=== PATIENT | female | born 1955 | race Caucasian/White ===

== ENCOUNTER 2023-04-07 13:19 | Outpatient (OUT) | payer MEDICARE, SELFPAY ==
[2023-04-07 14:23] LABS: Basophils Percent Auto 0.3 % (0.2-2.0); Eosinophils Absolute Auto 0.2 10^3/uL (0.0-0.7); Eosinophils Percent Auto 2.2 % (0.9-7.0); Hematocrit 41.1 % (36.0-48.0); Hemoglobin 13.5 g/dL (12.0-16.0); Immature Granulocytes Abs Auto 0.05 10^3/uL (0.00-0.03); Immature Granulocytes Pct Auto 0.6 % (0.0-0.5); Lymphocytes Absolute Auto 2.7 10^3/uL (1.2-3.8); Lymphocytes Percent Auto 29.7 % (20.5-60.0); Mean Corpuscular HGB Conc 32.8 g/dL (29.9-35.2); Mean Corpuscular Hemoglobin 29.2 pg (26.7-34.0); Mean Platelet Volume 10.9 fL (9.5-13.5); Monocytes Absolute Auto 0.8 10^3/uL (0.3-0.8); Monocytes Percent Auto 8.4 % (1.7-12.0); Neutrophils Absolute Auto 5.3 10^3/uL (1.4-6.5); Neutrophils Percent Auto 58.8 % (43.0-75.0); Platelet Count 191 10^3/uL (150-450); Red Blood Count 4.62 10^6/uL (4.20-5.40); Red Cell Distribution Width 14.8 % (11.0-15.0)
[2023-04-07 14:47] LABS: Anion Gap 13.3; BUN Creatinine Ratio 14.4; Carbon Dioxide 26.5 mmol/L (21.0-32.0); Chloride 105 mmol/L (98-107); Estimated GFR (African America >60 (>=60); Estimated GFR (Non-African Ame 57 (>=60); Glucose 98 mg/dL (74-106); Potassium 3.8 mmol/L (3.5-5.1); Sodium 141 mmol/L (136-145)
[2023-04-07 15:04] LABS: INR 1.42; Partial Thromboplastin Time 38.7 sec (22.3-36.2); Prothrombin Time 14.8 sec (9.0-11.6)
== END 2023-04-07 13:20 ==
LOC: PST 13:23
PROVIDERS: Surgery; PCP Family Medicine
DX: Z01.812 Encounter for preprocedural laboratory examination (principal); K82.4 Cholesterolosis of gallbladder; J44.9 Chronic obstructive pulmonary disease, unspecified; Z79.01 Long term (current) use of anticoagulants
CPT/HCPCS: 36415; 80048; 85025; 85610; 85730

== ENCOUNTER 2023-04-22 08:18 | Day surgery (SDC) | payer MEDICARE, SELFPAY ==
[2023-04-07 13:54] VITALS: BP 156/91; PULSE 86; RESP 22; TEMP 36.6; O2SAT 94; BMI 32.0
[2023-04-22] VITALS (20 sets, daily range): BP systolic 118–198; BP diastolic 62–105; PULSE 65–87; RESP 12–21; TEMP 36.2–36.3; O2SAT 95–100; BMI 31.6
[2023-04-22] MEDS: INDOCYANINE GREEN 25 MG VIAL INJ (08:54)
[2023-04-22] MEDS: LACTATED RINGER'S SOLUTION 1,000 ML 50 ML IV (08:54)
[2023-04-22] MEDS: CEFAZOLIN SODIUM/DEXTROSE,ISO 2 GM/50 ML PIGGYBACK IV (09:21)
[2023-04-22] MEDS: BUPIVACAINE HCL 0.5% PF 50 MG/10 ML VIAL 20 ML INJ (10:04)
--- NOTE | 2023-04-22 10:51 | PM.GSPRC ---
Date of procedure: 03/25/23 Indications for Procedure: This patient is a 67-year-old female who was recently seen for episodes of right upper quadrant pain. Gallbladder ultrasound revealed cholelithiasis or possible gallbladder polyp. Robotic cholecystectomy was recommended. The risks benefits options and potential complications of the procedure were discussed in detail with the patient and they agreed to proceed and consent was signed. Pre-op diagnosis: symptomatic cholelithiasis, and possible gallbladder polyp Post-op diagnosis: same Procedure: robotic cholecystectomy with ICG cholangiogram Anesthesia: GETA Surgeon: Ike Belcher Procedure Summary: The patient was brought to the operating room placed in the supine position. Gen. anesthesia was induced and the patient was intubated. The abdomen was prepped and draped in usual sterile fashion. She had been given preoperative IV antibiotics and was also given preoperative ICG. A site in the left upper quadrant was infiltrated with half percent Marcaine with epinephrine. A small incision was made. A 12 mm port was placed through this incision and advanced into the peritoneal cavity under laparoscopic guidance. The abdomen was then insufflated to 15 mmHg of carbon dioxide. The camera was reintroduced and safe port site entry was confirmed. Three 8 mm robotic ports were then placed, one at the umbilicus and two in the right lateral abdomen following local anesthesia under direct visualization. The camera was removed and an additional 8 mm port was placed through the 12 mm port. the patient was then placed in reverse Trendelenburg position and banked to the left. At this time the da Marbin XI was brought to the field and camera was introduced and all ports direct and instruments introduced in standard fashion.at this time I left the operating table and attended the surgeon consult. The fundus of the gallbladder is grasped and retracted cephalad. The region of Zamora's pouch was grasped and retracted laterally. Dissection was not carried out in the region of the triangle of Calot. The cystic duct was readily identified. This was confirmed with a client services director. This was then divided between clips. Posterior to this the cystic artery was identified. This was divided after clip placement. The gallbladder was then taken off the liver using electrocautery. Excellent hemostasis and secured clip placement was noted. The gallbladder was then placed in a retrieval bag. This was brought out through the 12 mm port site intact. Instruments, camera and ports were subsequently removed and the abdomen was desufflated. Skin incisions were closed with subcuticular sutures of 4-0 Vicryl. Sterile dressings were applied. The patient tolerated the procedure well and was transferred to the recovery area in stable condition. Estimated blood loss (mL): 2 Specimens: gallbladder Complications: No
[2023-04-22] MEDS: HYDRALAZINE HCL 20 MG/ML VIAL 10 MG IVP (11:25)
[2023-04-22] MEDS: ONDANSETRON PF 4 MG/2 ML VIAL IV (11:35)
== END 2023-04-22 13:17 | disposition home health service (06) ==
PROVIDERS: PCP Family Medicine; Visit Provider Surgery
PROC: (CPT 47563; principal; 2023-04-22 10:10)
DX: K80.10 Calculus of gallbladder with chronic cholecystitis without obstruction (principal); Z79.01 Long term (current) use of anticoagulants; J43.1 Panlobular emphysema; Z87.891 Personal history of nicotine dependence; Z87.09 Personal history of other diseases of the respiratory system; Z86.711 Personal history of pulmonary embolism; M19.90 Unspecified osteoarthritis, unspecified site
CPT/HCPCS: 47563; 36415; 88304; J2704

== ENCOUNTER 2023-10-18 10:59 | Outpatient (OUT) | payer OTHER, SELFPAY ==
--- NOTE | 2023-10-18 | ECG_ITS ---
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
== END 2023-10-18 11:00 | disposition home or self-care (01) ==
LOC: CARD 11:02
PROVIDERS: PCP Family Medicine; Visit Provider Family Medicine
DX: R10.13 Epigastric pain (principal)
CPT/HCPCS: 93005

== ENCOUNTER 2025-05-01 16:19 | Emergency (ER) | payer OTHER, SELFPAY ==
--- OUTSIDE RECORDS SUMMARY | 2023-11-02 06:00 | XMS_ITS ---
Author Organization The [facility] in [place] Address [address] [place] [address] Care Team Providers Care Clinical Laboratory Scientist Name Role Phone Michelle Mccarthy Primary Care Provider Joshua Adams Unavailable [phone] Allergies No Known Allergies REASON FOR VISIT F/U-1 YR. PE Medications Medication SIG (Take, Route, Frequency, Duration) Notes Start Date End Date Status Xarelto 20 MG 1 tablet with food O rally Once a day for 90 days Active Ipratropium-Albuterol 0.5-2.5 (3) MG/3ML 3 mL as needed Inhalation every 6 hrs Active Baclofen 10 MG 1 tablet as needed O rally Twice a day Active Social History Tobacco Use: Social History Observation Description Date Details (start date - stop date) Former Smoker NA - NA Tobacco Use/Smoking Question Answer Notes Patient is a former smoker Additional Findings: Tobacco Non-User Ex-heavy c igarette smoker (20-30/day) Vital Signs Weight 165.0 lbs 11/02/2023 Height 61 in 11/02/2023 Blood pressure systolic 143 mm Hg 11/02/19 24 Blood pressure diastolic 83 mm Hg 024 Temperature 97.6 degrees Fahrenheit 11/02/19 24 Heart Rate 60 /min 11/02/2023 Respiratory Rate 18 /min 11/02/2023 BMI 31.17 kg/m2 11/02/2023 Oximetry 98 % 11/02/2023 Encounters Encounter Location Date Provider Diagnosis [facility] [address] [place] [address] 11/02/2023 Joshua Salinas Pulmonary embolism I26.99 ; Long-term (current) use of anticoagulants Z79.01 ; Panlobular emphysema J43.1 ; 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 She has been on Xarelto for nearly 2 years now. Concerned about the mendoza. As she is going to remain on anticoagulation lifelong, I suggested looking into decreasing the dose to a prophylactic dose of 10mg/day. She is going to reach out to the pharmacy to see how much cheaper, if any, it is for the 10mg vs. 20mg tabs. She is going to get back with me regarding it, but I expect to start her on 10mg/day at that time. F/U 1 year, or PRN sooner. 11/02/2023 Long-term (current) use of anticoagulants (ICD-10 - Z79.01) Mild bruising at times, but no abnormal bleeding reported. 11/02/2023 Panlobular emphysema (ICD-10 - J43.1) Secondary to tobacco abuse - AAT normal genotype. Asymptomatic at this time, has refused PFT in the past. 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 LDCT were held d/t chest CTA. 11/02/2023 History of pleural effusion (ICD-10 - Z87.09) 11/02/2023 Obesity, unspecified (ICD-10 - E66.9) 11/02/2023 Body mass index [BMI] 31.0-31.9, adult (ICD-10 - Z68.31) Plan Of Treatment Treatment Notes Assessment Notes Pulmonary embolism Pulmonary emboli were diagnosed on 12/15/2021, not present on prior CT 11/11/2021. 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 She has been on Xarelto for nearly 2 years now. Concerned about the mendoza. As she is going to remain on anticoagulation lifelong, I suggested looking into decreasing the dose to a prophylactic dose of 10mg/day. She is going to reach out to the pharmacy to see how much cheaper, if any, it is for the 10mg vs. 20mg tabs. She is going to get back with me regarding it, but I expect to start her on 10mg/day at that time. F/U 1 year, or PRN sooner. Long-term (current) use of anticoagulant s Mild bruising at times, but no abnormal bleeding reported. Panlobular emphysema Secondary to tobacco abuse - AAT normal genotype. Asymptomatic at this time, has refused PFT in the past. History of tobacco abuse 1ppd x 34 years, quit 2010. LDCT were held d/t chest CTA. Next Appt Details Follow Up: 1 Year, Reason: P ulmonary embolism Provider Name:Joshua Salinas, 10/02/2025 10:30:00 AM, [address] [place], [address], Procedure Notes * Category Sub-Category Detail Notes Alpha-1 Antitrypsin Screening Date: 11/18/2021 Genotype: M/M Progress Notes * [place] FDOB: (68 yo F)Acc No.[id number]:11/02/2023 Follow Up Patient: Bernard Damico Provider: Hellen Salinas DO :1955 A ge:68 Y S ex:Female Date:11/02/2023 Address:[address] [place], [place] [id number] Pcp:Michelle Mccarthy Check In:09:52 AM ESTCheck O ut:10:22 AM EST Subjective: * Chief Complaints: * F /U-1 YR. PE * HPI: G eneral: 1 YEAR F/U P kelly is doing well. No issues with bleeding, though she bruises easily. Breathing well, no complaints. Was seen by me 04/07/2023 preop - had no complications postoperatively. H er only concern is the $$$ of Xarelto - it has increased to $84 to $104/month. She wants to remain on it as long as she can out of fear of developing another pulmonary embolism. * * M A Intake Comments:. Patient presents for a 1-year follow up for a PE. Patient denies any complaints or concerns today. Patient denies any abnormal bleeding. Patient is currently taking Xarelto daily without any issues. * ROS: G eneral/Constitutional: Fever or sweats d enies. C hange of appetite d enies. C hills d enies. W eight Change d enies. H EENT: Dry mouth d enies. S ore throat d enies. O ral Ulcers d enies. P ost Nasal Drip D enies. C ongestion D enies. H oarseness?Denies. C ardiovascular: Tachycardia d enies. C hest pain d enies. P alpitations d enies. R espiratory: Chest tightness d enies. P leurisy D enies. D yspnea d enies. C ough d enies. H emoptysis d enies. W heezing d enies.? G astrointestinal: Acid Reflux/GERD/Heartburn d enies. D ysphagia d enies. M usculoskeletal: Arthralgias/joint pain D enies. S kin: Easy bruising d ue to Xarelto. R darrel d enies. N eurologic: Paresthesias d enies. D izziness/Lightheadedness d enies. S eizures d enies. T remor d enies. H ematology: Abnormal Bleeding n one while on Xarelto. P sychiatric: Anxiety d enies. * Active Problem List J43.1 Panlobular emphysema Modified On:11/02/2023 Status:confirmed I26.99 Pulmonary embolism Modified On:11/02/2023 Status:confirmed Z87.891 History of tobacco a buse Modified On:11/02/2023 Status:confirmed Z87.09 History of pleural e ffusion Modified On:11/02/2023 Status:confirmed Z79.01 Long-term (current) use of anticoagulants Modified On:11/02/2023 Status:confirmed R79.1 Elevated factor VIII level Modified On:11/02/2023 Status:confirmed K80.20 Cholelithiasis Modified On:04/28/2023 Status:confirmed Z90.49 Acquired absence of other specified parts of digestive tract Modified On:05/02/2023 Status:confirmed E66.9 Obesity, unspecified Modified On:11/02/2023 Status:confirmed * Medical History: * Surgical History: a lenka stent 2010hysterectomy section thoracentesis-left thoracostomy tube placement 11/10/2021holecystectomy with ICG cholangiogram 04/22/23cataract-lens implants * Hospitalization/Major Diagno stic Procedure: P ulmonary Abscess LLL with aspiration pneumonia 11/09/2021 * Family History: F ather: . M other: , emphysema, diagnosed with Diabetes, Hypertension, Cancer. S ister(s): , diagnosed with Diabetes, Hypertension. * Social History: T obacco Use: T obacco Use/Smoking P atient is a f ormer smoker A dditional Findings: Tobacco Non-User E x-heavy cigarette smoker (20-30/day) LM: Additional Tobacco Questions N umber of Years Pt Smoked: 3 4 N umber of Packs per Day: 1 Electronic Cigarette use C urrent user N o When did you stop smokin. D rugs/Alcohol: D rugs H ave you used drugs other than those for medical reasons in the past 12 months? N o D oes the Patient have a History of Drug Abuse in the Past? N o Caffeine I ntake: 1 -2 cups per day Coffee Do you drink alcohol?: Socially. Do you smoke marijuana?: Denies. 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 * Medications: T akingBaclofen 10 MG Tablet 1 tablet as needed Orally Twice a dayIpratropium- Albuterol 0.5-2.5 (3) MG/3ML Solution 3 mL as needed Inhalation every 6 hrsXarelto(Rivaroxaban) 20 MG Tablet 1 tablet with food Orally Once a dayMedication List reviewed and reconciled with the patientTaking Baclofen 10 MG Tablet 1 tablet as needed Orally Twice a dayTaking Ipratropium-Albuterol 0.5-2.5 (3) MG/3ML Solution 3 mL as needed Inhalation every 6 hrsTaking Xarelto(Rivaroxaban) 20 MG Tablet 1 tablet with food Orally Once a dayMedication List reviewed and reconciled with the patient * Allergies: N .K.D.A.no[Allergies Verified] Objective: * Vitals: W t:165.0 lbs, Ht: 61 in, BP: sittin/83,repeat:143/83, Temp:Forehead:97.6, HR:60 /min, RR:18 /min, BMI:31.17 Index, Oxygen sat %:Room Air:98, Ht-cm: 154.94 cm, Wt-k.84 kg. * Examination: E xam: GENERAL APPEARANCE: A ppears stated age. Skin N ormal. No ecchymoses or bruises noted on forearms. Mouth P ink and moist. Upper dentures. Oropharynx/Tongue M allampati Class III. Trachea M idline. Chest N ormal. Respiratory Normal M ovements, E ffort N ormal. Auscultation B reath sounds are clear to auscultation - no wheezes, rhonchi, or crackles. Cardiac R egular rate and rhythm. Gastrointestinal N ormal. Vascular N o edema. Musculoskeletal N ormal posture. Neurological F ocal, intact. Psychiatric A lert and oriented x3. Mentation/Cognition N ormal. Assessment: * Assessment: 1. P ulmonary embolism - I26.99 (Primary) 2 . L janie-term (current) use of anticoagulants - Z79.01 3 . P anlobular emphysema - J43.1 4 . E levated factor VIII level - R79.1, 12/15/2022: Factor VIII Activity: 252% (ref: 57-163%) 5 . H istory of tobacco abuse - Z87.891 6 . H istory of pleural effusion - Z87.09 7 . O besity, unspecified - E66.9 8 . B marquita mass index [BMI] 31.0-31.9, adult - Z68.31 Plan: * Treatment: 2. L janie-term (current) use of anticoagulants Notes: Mild bruising at times, but no abnormal bleeding reported. 3. P anlobular emphysema Notes: Secondary to tobacco abuse - AAT normal genotype. Asymptomatic at this time, has refused PFT in the past. 4. H istory of tobacco abuse Notes: 1ppd x 34 years, quit 2010. LDCT were held d/t chest CTA.. * Recommended Wellness and Pre vention Guidelines: * S tatus A lert L ast Done N ext Due A ction Taken C OMPLIANT F all Risk Assessment 0 11/02/2023 0 11/02/2024 D ocumented structured data - Fall Risk Assessment: * Procedures: A lpha-1 Antitrypsin: Screening Date: 0 11/18/2021. Genotype: M /M. * Procedure Codes: * Preventive Medicine: COVID Vaccination: H as patient had COVID Vaccination? COVID Vaccination N o Patient Declined Immunization Status: P neumovacc P t Refused. I nfluenza P t Refused. Screenings/Counseling: F ALL RISK SCREENING Fall Risk Assessment: N o falls in the past year Are you afraid of falling? N o T OBACCO ACTION PLAN Patient counselled on the dangers of tobacco use and urged to quit. 0 11/02/2023 F RASHAD EXCLUSION Reason: P atient Reason refused/declined Type of Patient Reason: D rug declined by patient B MN ACTION PLAN Above Normal BMI Follow-up D ietary management education, guidance, and counseling * Follow Up: 1 Year (Reason: Pulmonary embolism) * * Sign off status: Completed Visit Status: C HK (Check Out) true * Provider: Hellen Salinas, Date: 0 11/02/2023 Generated for Fer magallanes/Paul/eTransmitting on: 0 05/01/2025 04:26 PM EDT History and Physical Notes * HPI (History of Present Illness) Category Sub-Category Detail Notes Category Not es General Patient present s for a 1-year follow up for a PE. Patient denies any complaints or concerns today. Patient denies any abnormal bleeding. Patient is currently taking Xarelto daily without any issues. Examination Category Sub-Category Detail Notes Category Not es Exam GENERAL APPEARANCE: Appears stated age Skin Normal. No ecchymose s or bruises noted on forearms Mouth Colonia and moist. Uppe r dentures Trachea Midline Chest Normal Respiratory Normal Movements, Ef fort Normal Auscultation Breath sounds are cl ear to auscultation - no wheezes, rhonchi, or crackles Percussion Egophony Bronchophony Fremitus Whispered pectoriloquy Cardiac Regular rate and rhy thm Gastrointestinal Normal Vascular No edema Musculoskeletal Normal posture Neurological Focal, intact Psychiatric Alert and oriented x 3 Mentation/Cognition Normal Oropharynx/Tongue Mallampati Class III
--- OUTSIDE RECORDS SUMMARY | 2025-01-15 03:57 | XMS_ITS ---
Author Organization The [facility] in [place] Address [address] [place] [address] Care Team Providers Care Yarn Texturing Machine Operator Name Role Phone Michelle Mccarthy Primary Care Provider Manuel montano BradJoshua Unavailable [phone] REASON FOR VISIT Xarelto Medications Medication SIG (Take, Route, Frequency, Duration) Notes Start Date End Date Status Xarelto 20 MG 1 tablet with food O rally Once a day for 90 days Active Encounters Encounter Location Date Provider Diagnosis Pul[facility] [place] [address] [place] [address] 01/15/2025 Joshuasantos Rea Pulmonary embolism I26.99 Assessments Encounter Date Diagnosis (ICD Code) Assessment Notes Treatment Notes Treatment Clinical Notes Section Notes 01/15/2025 Pulmonary embolism (ICD-10 - I26.99) Plan Of Treatment Medication Medication Name Sig Start Date Stop Date Notes Xarelto 20 MG 1 tablet with food O rally Once a day for 90 days Next Appt Details Provider Name:Joshuasantos Rea, 10/02/2025 10:30:00 AM, [address] [place], [address], Progress Notes * Bernard [place] FDOB: (69 yo F)Acc No.[id number]:01/15/2025 Patient: Bernard NUNO :1955 A ge:69 Y S ex:Female Address:[address] [place] [address] [address], [place], [address] * Refills Refill Xarelto Tablet, 20 MG, Orally, 90, 1 tablet with food, Once a day, 90 days, Refills=4 Subjective: * Chief Complaints: * X arelto * Medical History: * Surgical History: * Hospitalization/Major Diagno stic Procedure: * Medications: Objective: * Vitals: * Physical Examination: Assessment: * Assessment: 1. P monary embolism - I26.99 (Primary) Plan: * Treatment: * Procedure Codes: * true * Date: Generated for Fer magallanes/Paul/Yasminesmitting on: 0 05/01/2025 04:25 PM EDT
[2025-05-01 16:22] VITALS: BP 220/93; PULSE 72; TEMP 36.7; O2SAT 98; BMI 28.9
--- OUTSIDE RECORDS SUMMARY | 2025-05-01 16:26 | XMS_ITS | Clinical Summary ---
Author Organization [facility] Address [id number] [address] [place] [address] Care Team Providers Care Plugger Man Name Role Phone Unavailable Primary Care Provider Unavailabl e Social History Tobacco Use Types Packs/Day Years Used Date Smoking Tobacco: Never Assessed Childcare Answer Date Recorded Childcare Unknown 03/26/2019 Employment Answer Date Recorded Employment Unknown 03/26/2019 Comments Unknown Sex and Gender Information Value Date Recorded Sex Assigned at Not on file Legal Sex Female 2:04 PM EDT Gender Identity Not on file Sexual Orientation Not on file Plan of Treatment Health Maintenance Due Date Last Done Comments Depression Screening 1967 Tobacco Screening 1967 Adult BMI Screening 1973 DTaP,Tdap and Td Vaccines (1 - Tdap) 1974 Zoster (Shingles) Vaccine (1 of 2) 2005 Fall Risk Screening 2020 Influenza Vaccine 06/17/2025 Medical Devices Not on file
--- OUTSIDE RECORDS SUMMARY | 2025-05-01 16:26 | XMS_ITS | Patient Health Record ---
Author Organization [facility] in [place] Address [address] [place] [address] Care Team Providers Care Zipper Setter Lockstitch Name Role Phone Michelle Mccarthy Primary Care Provider Manuel montano BradJoshua Unavailable [phone] Allergies No Known Allergies Reason For Referral No Information Medications Medication SIG (Take, Route, Frequency, Duration) [...] date) Former Smoker NA - NA Tobacco Control (Standard) Question Answer Notes Tobacco use: Former smoker How long has it been since y ou last smoked? 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) Active confirmed Problem Pulmonary embolism (53187825) Pulmonary embolism (I26.99) Active confirmed Problem Cholelithiasis (693222555) Cholelithiasis (K80.20) Active confirmed Problem Ex-tobacco user (finding) (997885207) History of tobacco abuse (Z87.891) Active confirmed Problem History of pleural effusion (974626230) History of pleural effusion (Z87.09) Active confirmed Problem Long-term current use of anticoagulant (267973087) Long-term (current) use of anticoagulants (Z79.01) Active confirmed Problem Coagulation/bleed ing tests abnormal (850953728) Elevated factor VIII level (R79.1) Active confirmed 12/15/2022 : Factor VIII Activity : 252% (ref: 57-163%) Vital Signs Heart Rate 74 /min 10/02/2024 Temperature 96.6 degrees Fahrenheit 10/02/2024 Respiratory Rate 18 /min 10/02/2024 Blood pressure diastolic 78 mm Hg 10/02/2024 Oximetry 96 % 10/02/2024 Height 61 in 10/02/2024 Blood pressure systolic 178 mm Hg 10/02/2024 Weight 154.8 lbs 10/02/2024 BMI 29.25 kg/m2 10/02/2024 Encounters Encounter Location Date Provider Diagnosis [facility] [place] [address] [place] [address] 01/15/2025 Joshua Salinas Pulmonary embolism I26.99 [facility] [place] [address] [place] [address] 10/02/2024 Joshua Salinas Pulmonary embolism I26.99 ; Long-term (current) use of anticoagulants Z79.01 ; Panlobular emphysema J43.1 ; 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 Elevated factor VIII is not considered to be the cause of her hypercoagulable state. Discussed again continuing on a maintenance dose versus prophylactic. Pricing was no different with dosing. Patient states that she is not having any issues with abnormal bleeding on Xarelto 20 mg a day, so she elected to stay on it. She will check her insurance to see if Eliquis may be cheaper now. F/U 1 year, or PRN sooner. 10/02/2024 Long-term (current) use of anticoagulants (ICD-10 - Z79.01) Remains on Xarelto, no abnormal bleeding reported 01/15/2025 Pulmonary embolism (ICD-10 - I26.99) 10/02/2024 Panlobular emphysema (ICD-10 - J43.1) Patient is now having respiratory squeaks/wheezes. New compared to last visit. Discussed with patient if she wants to consider any workup such as with PFT or treatment but she declined both these options currently. She was encouraged to call me if she feels that her breathing is worsening and needs intervention. 10/02/2024 Elevated factor VIII level (ICD-10 - R79.1) 12/15/2022: Factor VIII Activity: 252% (ref: 57-163%) 10/02/2024 History of tobacco abuse (ICD-10 - Z87.891) 1ppd x 34 years, quit 2010. Plan Of Treatment Next Appt Details Provider Name:Joshua Salinas, 10/02/2025 10:30:00 AM, [address] [place], [address], Insurance Providers Payer Name Payer Address Payer Phone Subscriber Number Group Number Insured Name Patient Relationship to Insured Coverage Start Date Coverage End Date [employer] [address] [place] [phone] Bernard Bahena Self - patient is the insured Medical (General) History Medical History History ICD Code Pulmonary embolism I26.99 Panlobular emphysema J43.1 Abscess of lower lobe of left lung with pneumonia J85.1 Osteoarthritis M19.90 Long-term (current) use of anticoagulant s Z79.01 History of tobacco abuse Z87.891 History of pleural effusion Z87.09 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
--- OUTSIDE RECORDS SUMMARY | 2025-05-01 16:26 | XMS_ITS | Clinical Summary ---
Author Organization [facility] Address [address] [place] [address] Care Team Providers Care Damage Cutter Name Role Phone Mitzi Herrera MD Unavailable [phone] Social History Tobacco Use Types Packs/Day Years Used Date Smoking Tobacco: Never Assessed Comments Unknown Sex and Gender Information Value Date Recorded Sex Assigned at Not on file Legal Sex Female 6:54 PM EDT Gender Identity Not on file Sexual Orientation Not on file Last Filed Vital Signs Vital Sign Reading Time Taken Comments Blood Pressure 149/77 04/29/2021 12:00 PM EDT Pulse - - Temperature - - Respiratory Rate - - Oxygen Saturation - - Inhaled Oxygen Concentration - - Weight 72.6 kg (160 lb) 04/29/2021 12:00 PM EDT Height 154.9 cm (5' 1 ) 04/29/2021 12:00 PM EDT Body Mass Index 30.23 04/29/2021 12:00 PM EDT Plan of Treatment Health Maintenance Due Date Last Done Comments CT Colonography 1955 Colonoscopy 1955 Colorectal Cancer Screening 1955 FIT-DNA 1955 FIT 1955 FOBT 1955 Sigmoidoscopy 1955 Pneumococcal Vaccine: 65+ Years (1 of 2 - PCV) 974 Mammogram 1995 Influenza Vaccine (#1) 2025 Medicare Annual Wellness (AWV) 10/18/2025 10/18/2024 Care Teams Damage Cutter Relationship Specialty Start Date End Date Mitzi Herrera MD [address] [place] [address] PCP - [facility] 10/17/24
--- OUTSIDE RECORDS SUMMARY | 2025-05-01 16:26 | XMS_ITS | Clinical Summary ---
Author Organization [facility] Address [address] [place] [address] Care Team Providers Care Test Specialist Name Role Phone Unavailable Primary Care Provider Unavailabl e Social History Tobacco Use Types Packs/Day Years Used Date Smoking Tobacco: Never Assessed [place] Safety & Environment Answer Date Rec orded Fear of Current or Ex-Partner Not on file Emotionally Abused Not on file 12/08/2023 Physically Abused Not on file 12/08/2023 Sexually Abused Not on file 12/08/2023 Physically or Sexually Abused Not on file Comments Unknown Sex and Gender Information Value Date Recorded Sex Assigned at Not on file Legal Sex Female 12:43 AM EDT Gender Identity Not on file Sexual Orientation Not on file Plan of Treatment Not on file
--- NOTE | 2025-05-01 16:57 | ED_ITS ---
HPI HPI - General Adult General Chief complaint: Wound/Laceration Stated complaint: LACERATION Time Seen by Provider: 05/01/25 16:20 Source: patient Mode of arrival: walk-in Limitations: no limitations History of Present Illness HPI narrative: Patient is a 69-year-old female who presents to the emergency department today for evaluation concerns for a laceration to her finger. She endorses she was using a cheese grater and subsequently cut the dorsal aspect of her left thumb. She reports there is pulsating bleeding coming from this wound to proceeded to the ER. Patient does endorse she is on Xarelto. She mention she is up-to-date on tetanus vaccine. Related Data Home Medications ?Medication ?Instructions ?Recorded ?Confirmed albuterol sulfate 90 mcg/actuation 2 inh inhalation Q6 H PRN shortness 04/07/23 04/07/23 aerosol inhaler of breath or wheezing baclofen 5 mg tablet 5 mg PO DAILY 04/07/2304/07 ipratropium 0.5 mg-albuterol 3 mg 3 ml inhalation Q8H 04/07/23 04/07/23 (2.5 mg base)/3 mL nebulization soln rivaroxaban 20 mg tablet (Xarelto) 20 mg PO DAILY 03/1804/07/23 Previous Rx's ?Medication ?Instructions ?Recorded hydrocodone 5 mg-acetaminophen 325 1 tab PO Q6H PRN pa in 3 days #8 04/22/23 mg tablet tabs Allergies Allergy/AdvReac Type Severity Reaction Status Date / Time No Known Drug Allergies Allergy Verified 05/01/25 16:22 Opioid HPI Opioid Management Most Recent Opioid Data: Last Pain Scale 2 Today, 16:22 Review of Systems ROS Status of ROS 10 or more systems reviewed and unremark able except as noted in history and below [facility] Medical History (Updated 05/01/25 @ 17:01 by Marcello Ralph NP) Arthritis ?M19.90 - Unspecified osteoarthritis, unspecified site (ICD-10) Deep vein thrombosis ?I82.409 - Acute embolism and thrombosis of unspecified deep veins of unspecified lower extremity (ICD-10) Emphysema lung ?J43.9 - Emphysema, unspecified (ICD-10) Chronic obstructive pulmonary disease ?J44.9 - Chronic obstructive pulmonary disease, unspecified (ICD-10) Pulmonary embolism ?I26.99 - Other pulmonary embolism without acute cor pulmonale (ICD-10) Elevated blood pressure reading in office without diagnosis of hypertension ?R03.0 - Elevated blood-pressure reading, without diagnosis of hypertension (ICD-10) Menopause ?Z78.0 - Asymptomatic menopausal state (ICD-10) Hyperthyroidism ?E05.90 - Thyrotoxicosis, unspecified without thyrotoxic crisis or storm (ICD-10) Cholelithiasis ?K80.20 - Calculus of gallbladder without cholecystitis without obstruction ( ICD-10) Pilonidal cyst ?L05.91 - Pilonidal cyst without abscess (ICD-10) Surgical History (Updated 04/07/23 @ 14:00 by Jinny Johnson NP) History of hysterectomy ?Z90.710 - Acquired absence of both cervix and uterus (ICD-10) History of section ?Z98.891 - History of uterine scar from previous surgery (ICD-10) History of section ?Z98.891 - History of uterine scar from previous surgery (ICD-10) S/P surgical removal of pilonidal cyst ?Z98.890 - Other specified postprocedural states (ICD-10) History of oophorectomy, unilateral ?Z90.721 - Acquired absence of ovaries, unilateral (ICD-10) Status post aortic coarctation stent placement (2009) ?Z95.828 - Presence of other vascular implants and grafts (ICD-10) ?Z87.74 - Personal history of (corrected) congenital malformations of heart and circulatory system (ICD-10) Family History (Updated 04/07/23 @ 14:00 by Jinny Johnson NP) Other Bladder cancer Family history of diabetes mellitus Family history of hypertension Social History (Updated 04/07/23 @ 13:54 by Jinny Johnson NP) Within the past year, how often did you have a drink containing alcohol: monthly or less Smoking status: Former smoker Non-prescribed substance use: denies use Highest level of school completed/degree received: high school graduate Little interest or pleasure in doing things: not at all Feeling down, depressed, or hopeless: not at all Exam Narrative Exam Narrative: Constituational: Awake/ alert, no apparent distress, well hydrated HENMT: normocephalic, external ears normal, moist oral mucous membranes and oropharynx normal Eyes: EOMI and conjunctivae normal Neck: ROM intact Chest: inspection of chest normal Respiratory: Normal respiratory effort MSK: Gross/Fine motor movement tact to L thumb, L hand/wrist stable, +NVI Skin: + Approximate 1 cm skin to dorsal aspect just above PIP of L thumb, no rashes or petechiae Neuro: no focal deficits Psych: mental status grossly normal Constitutional Vital Signs, click to edit/add: Last Vital Signs Temp 98.1 F 05/01/25 16:22 Pulse 72 05/01/25 16:22 Resp 16 05/01/25 16:22 BP 220/93 H 05/01/25 16:22 Pulse Ox 98 05/01/25 16:22 O2 Del Method Room Air 05/01/25 16:22 Course Vital Signs Vital signs: Vital Signs Temperature 98.1 F 05/01/25 16:22 Pulse Rate 72 05/01/25 16:22 Respiratory Rate 16 05/01/25 16:22 Blood Pressure 220/93 H 05/01/25 16:22 Pulse Oximetry 98 05/01/25 16:22 Oxygen Delivery Method Room Air 05/01/25 16:22 Temperature 98.1 F 05/01/25 16:22 Pulse Rate 72 05/01/25 16:22 Respiratory Rate 16 05/01/25 16:22 Blood Pressure 220/93 H 05/01/25 16:22 Pulse Oximetry 98 05/01/25 16:22 Oxygen Delivery Method Room Air 05/01/25 16:22 Medical Decision Making MDM Narrative Medical decision making narrative: Patient is a well-appearing 69-year-old female who presented to the emergency department today for evaluation concerns for laceration to her left thumb 2/2 using a cheese grater. Initial examination patient with skin avulsion to her left thumb at the dorsal aspect. This appeared to be somewhat of an arterial bleed due to pulsating blood flow. Wound care provided. Tourniquet applied with direct pressure. This did seem to slow the bleeding some. Surgicel and pressure dressing applied with elevation of the extremity and ice. Patient was observed following this for an additional 30 minutes and on reevaluation hemostasis had been achieved. Discussed these findings with the patient including recommendations for supportive care for finger laceration. Historically patient is up-to-date on tetanus. Patient instructed to keep Surgicel dressing in place for the next 48 hours as she is on oral anticoagulants. Advised on follow-up with patient's primary care provider for reevaluation. Discussed signs and symptoms of any worsening condition and when to consider reevaluation by the emergency department. Patient verbalized an understanding of this and is agreeable with the plan to be discharged home. Medical Records Medical records reviewed: Yes I reviewed the patient's medical records Discharge Plan Discharge Chief Complaint: Wound/Laceration Clinical Impression: Laceration Patient Disposition: Home, Self-Care Prescriptions / Home Meds: No Action Xarelto 20 mg tablet 20 mg PO DAILY Rx Instructions: must administer with evening meal albuterol sulfate 90 mcg/actuation HFA aerosol inhaler 2 inh inhalation Q6H PRN (Reason: shortness of breath or wheezing) ipratropium-albuterol 0.5 mg-3 mg(2.5 mg base)/3 mL solution for nebulization 3 ml inhalation Q8H baclofen 5 mg tablet 5 mg PO DAILY hydrocodone-acetaminophen 5-325 mg tablet 1 tab PO Q6H PRN (Reason: pain) 3 Days Qty: 8 0RF Print Language: Palestinian Instructions: Finger Laceration (ED) Additional Instructions: Keep dressing in place for the next 48 hours. May apply ice and reinforce if there is any oozing. May return to the ER with any concerns at any time. Referrals: Michelle Mccarthy MD [Primary Care Provider, Family Practice] - 1 week
[2025-05-01 18:03] VITALS: O2SAT 9
--- OUTSIDE RECORDS SUMMARY | 2025-05-01 18:48 | XMS_ITS | CCD ---
Author Organization [facility] Care Team Providers Care Callisthenics Instructor Name Role Phone William Griffith Attending Provider Michelle Mccarthy Unavailable WILLIAM ALLEN Attending Unavailable WILLIAM ALLEN Admitting Unavailable DR MICHELLE MCCARTHY Primary Care Unavailable FABIO, DR MICHELLE Zapata Admitting Unavailable Natanael Oscar Consulting Unavailable FABIO, DR MICHELLE Zapata Attending Unavailable DR MICHELLE MCCARTHY Primary Care Unavailable FABIO, DR MICHELLE Zapata Consulting Unavailable RUCHI ALDRIDGE Consulting Unavailable Allergies Allergy Classification Reported Allergen(s) Allergy Type Date of Onset Reaction(s) Facility (4 sources) patient allergy list reviewed by nurse or physicia Propensity to adverse reactions 9 Comment:Done [facility] Other (4 sources) Allergies Reconciled Propensity to adverse reactions Unknown [facility] Other Medications Current Medications Medication Drug Class(es) Dates Sig (Normalized) Sig (Original) albuterol 0.833 mg/ml / ipratropium bromide 0.167 mg/ml inhalation solution (9 sources) Anticholinergic, beta2-Adrenergic Agonist Start: 07-03-2024 take 1 dose by inhalation four times daily as needed Ipratropium-Albuter ol 0.5 mg-3 mg(2.5 mg base)/3 mL solution for nebulization Active 0 .ROUTE .COMPLEX 1080 July 03, 2024 7:24am INHALE THE CONTENTS OF 1 VIAL VIA NEBULIZER 4 TIMES A DAY NEEDED take 1 dose by inhal ation four times daily as needed Ipratropium-Albuterol 0.5-2.5 (3) MG/3ML INHALE ONE VIAL USING NEBULIZER FOUR TIMES DAILY NEEDED for 90 days Active baclofen 10 mg oral tablet (9 sources) gamma-Aminobutyric Acid-ergic Agonist Start: 10-15-2024 take 1 tablet by mouth twice daily as needed Baclofen 10 mg tablet Active 1 TAB PO Twice daily October 15, 2024 12:00am [employer] tablet as needed Orally Twice a day; Note: Source Status: Refill; Qty: 180 Tablet; Provider: Fabio Zapata take 1 tablet by mouth every twe lve hours Baclofen 10 MG 1 tablet as needed Orally Twice a day for 90 days Active clobetasol propionate 0.5 mg/ml topical solution (2 sources) Corticosteroid Start: 10-18-2024 End: 10-18-2024 Clobetasol 0.05 % solution Active 1 APPLIC TOPICAL Daily 50 October 18, 2024 11:27am rivaroxaban 20 mg oral tablet (9 sources) Factor Xa Inhibitor Start: 10-15-2024 End: 10-18-2024 take 1 tablet by mouth once daily at dinner Rivaroxaban (Xarelto) 20 mg tablet Active 20 MG PO Daily October 18, 2024 12:00am must administer with evening meal take 1 tablet by fredi th every twenty-four hours Xarelto 20 MG 1 tablet with food Orally Once a day Active Completed/Discontinued Medications Medication Drug Class(es) Dates Sig (Normalized) Sig (Original) apixaban 5 mg oral tablet (9 sources) Factor Xa Inhibitor Start: 10-15-2024 End: 10-18-2024 take 1 tablet by mouth twice daily Apixaban 5 mg tablet Discontinued 1 TAB PO Twice daily October 15, 2024 12:00am October 18, 2024 10:41am [employer] tablet Orally Twice a day; Note: Source Status: Not-Takingundefined PRN; Provider: Fabio Martinez ( ) take 1 tablet by fredi th every twelve hours Eliquis 5 MG 1 tablet Orally Twice a day Not-Taking/PRN colestipol hydrochloride 1000 mg oral tablet (5 sources) Bile Acid Sequestrant Start: 10-15-2024 End: 10-18-2024 take 1 tablet by mouth three times daily Colestipol 1 gram tablet Discontinued GM PO October 15, 2024 12:00am October 18, 2024 10:41am [employer] Orally tid; Note: Source Status: Refill; Qty: 270 Tablet; Provider: Fabio Zapata Colestipol HCl 1 GM 1 Orally tid for 90 days Active ipratropium bromide 0.2 mg/ml inhalation solution (9 sources) Anticholinergic Start: 07-03-2024 End: 07-03-2024 take 0.5 mg by inhalation four times daily Ipratropium [place] 0.02 % solution Discontinued 0.5 MG INHALATION Four times daily July 02, 2024 11:00pm July 03, 2024 7:24am take 2.5 mL by inhal ation four times daily Ipratropium [place] 0.02 % 2.5 mL Inhalation qid Active take 2.5 mL by inhal ation four times daily Ipratropium [place] 0.02 % 2.5 mL Inhalation qid Active methylPREDNISolone 4 mg oral tablet (11 sources) Corticosteroid Start: 10-19-2022 take 4 mg by mouth once daily as needed methylPREDNISolone 4 MG as directed Orally Once a day for 6 days Oct, Not-Taking/PRN Problems Active Problems Problem Classification Problem Date Documented Date Episodic/Chronic Abdominal pain (2 sources) Right upper quadrant pain; Translations: [Epigastric pain] Episodic Allergic reactions (1 source) Dermatitis, unspecified Episodic Asthma (5 sources) Mild intermittent asthma; Translations: [Mild intermittent asthma, uncomplicated] Chronic Biliary tract disease (2 sources) Postcholecystectomy syndrome Episodic Chronic obstructive pulmonary disease and bronchiectasis (20 sources) Panacinar emphysema; Translations: [Panlobular emphysema] Onset: 8 Chronic Chronic obstructive pulmonary disease and bronchiectasis (4 sources) Bronchitis; Translations: [Bronchitis, not specified as acute or chronic] Episodic Esophageal disorders (5 sources) Gastroesophageal reflux disease without esophagitis; Translations: [Gastro-esophageal reflux disease without esophagitis] Chronic Genitourinary symptoms and ill-defined conditions (4 sources) Dysuria; Translations: [Dysuria] Episodic Nonspecific chest pain (5 sources) Chest pain, unspecified; Translations: [CHEST PAIN UNSPECIFIED] Onset: 3 Episodic Osteoarthritis (9 sources) Arthritis; Translations: [Unspecified osteoarthritis, unspecified site] Chronic Other aftercare (4 sources) Long-term current use of anticoagulant; Translations: [ad terminal makeup operator (current) use of anticoagulants] Episodic Other aftercare (1 source) Patient encounter status; Translations: [Other ad terminal makeup operator (current) drug therapy] 10-18-2024 Episodic Other aftercare (1 source) Other ad terminal makeup operator (current) drug therapy; Translations: [Long-term (current) use of other medications] 10-18-2024 Episodic Other circulatory disease (1 source) Elevated blood pressure; Translations: [Elevated blood-pressure reading, without diagnosis of hypertension] 10-18-2024 Episodic Other circulatory disease (1 source) Elevated blood-pressure reading, without diagnosis of hypertension; Translations: [Elevated blood pressure reading without diagnosis of hypertension] 10-18-2024 Episodic Other ear and sense organ disorders (4 sources) Hearing loss; Translations: [Unspecified hearing loss, left ear] Chronic Other ear and sense organ disorders (4 sources) Tinnitus of left ear; Translations: [Tinnitus, left ear] Episodic Other injuries and conditions due to external causes (4 sources) History of fall; Translations: [History of falling] Episodic Other nutritional; endocrine; and metabolic disorders (4 sources) Overweight; Translations: [Overweight] Episodic Otitis media and related conditions (4 sources) Non-suppurative otitis media; Translations: [Unspecified nonsuppurative otitis media, left ear] Episodic Pneumonia (except that caused by tuberculosis or sexually transmitted disease) (13 sources) Abscess of lung; Translations: [Abscess of lung with pneumonia] Episodic Pulmonary heart disease (9 sources) Pulmonary embolism; Translations: [Other pulmonary embolism without acute cor pulmonale] Episodic Residual codes; unclassified (4 sources) Procedure not done; Translations: [Procedure and treatment not carried out because of patient's decision for unspecified reasons] Episodic Screening and history of mental health and substance abuse codes (4 sources) Nicotine dependence; Translations: [Personal history of nicotine dependence] Episodic Spondylosis; intervertebral disc disorders; other back problems (8 sources) Low back pain; Translations: [Lumbago] Onset: 8 Episodic Thyroid disorders (6 sources) Simple goiter; Translations: [Nontoxic goiter, unspecified] Onset: 8 10-18-2024 Chronic Urinary tract infections (4 sources) Urethral syndrome; 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, unspecified] Episodic Viral infection (4 sources) Disease caused by 2019-nCoV; Translations: [COVID-19] Past or Other Problems Problem Classification Problem Date Documented Da te Episodic/Chronic Hemorrhoids (4 sources) Residual hemorrhoidal skin tags; Translations: [Residual hemorrhoidal skin tags] Onset: 10-25-2017 Episodic Other nutritional; endocrine; and metabolic disorders (4 sources) Abnormal weight gain; Translations: [Abnormal weight gain] Onset: 05-15-2018 Episodic Results Test Name Value Interpretation Reference Range Facility XR CHEST 2 Von 02-21-2023 XR CHEST 2 V EXAM: XR CHEST 2 V HISTORY: Chest pain COMPARISON: None. TECHNIQUE: PA and lateral views of the chest. FINDINGS: The cardiomediastinal silhouette is normal. No focal consolidation is identified. There is no pneumothorax. No pleural effusion is noted. The osseous structures are intact. IMPRESSION: No acute cardiopulmonary process. Electronically authenticated by: RUCHI ALDRIDGE Date: 2023-02-21 11:05 Normal [facility] XR RIBS RT NO CH 2Von 2022 XR RIBS RT NO CH 2V EXAMINATION: XR RIBS RT NO CH 2V HISTORY: Chest pain COMPARISON: No relevant comparison available. FINDINGS: RIBS: No fracture or suspicious bone lesion. LUNGS: No appreciable pneumothorax or pleural thickening. OTHER: Negative. IMPRESSION: 1. No acute or suspicious rib abnormality to account for patient's symptoms. Electronically authenticated by: NATANAEL OSCAR Date: 2023-02-21 14:59 Normal [facility] Body fluid differential cell counton 11-10-2021 Differential panel (Body fld) 5 % [facility] Comment on above: The reference interv al and other method performance specifications have not been established for this body fluid. The test result must be integrated into the clinical context for interpretation. Cells Counted Total [#] in P leural fluidon 11-10-2021 Cells Counted Total (Pleur fld) [#] 1627 /uL [facility] Comment on above: The reference interv al and other method performance specifications have not been established for this body fluid. The test result must be integrated into the clinical context for interpretation. Color of Spun Body fluidon 0 11-10-2021 Color (Spun body fld) Yellow [facility] Comment on above: The reference interv al and other method performance specifications have not been established for this body fluid. The test result must be integrated into the clinical context for interpretation. Determination of appearance of body fluidon 11-10-2021 Appearance (Body fld) Cloudy [facility] Comment on above: The reference interv al and other method performance specifications have not been established for this body fluid. The test result must be integrated into the clinical context for interpretation. Erythrocytes [#/volume] in P leural fluid by Automated counton 11-10-2021 RBC Auto (Pleur fld) [#/Vol] [id number] /uL [facility] Comment on above: The reference interv al and other method performance specifications have not been established for this body fluid. The test result must be integrated into the clinical context for interpretation. Evaluation of color of body fluidon 11-10-2021 Color (Body fld) Red [facility] Comment on above: The reference interv al and other method performance specifications have not been established for this body fluid. The test result must be integrated into the clinical context for interpretation. Manual body fluid eosinophil s/100 leukocyteson 11-10-2021 Eosinophils/100 WBC Manual cnt (Body fld) N/A [facility] Manual body fluid lymphocyte s/100 leukocyteson 11-10-2021 Lymphocytes/100 WBC Manual cnt (Body fld) 72 % [facility] Comment on above: The reference interv al and other method performance specifications have not been established for this body fluid. The test result must be integrated into the clinical context for interpretation. Neutrophils/100 WBC Manual c nt (Body fld)on 11-10-2021 Neutrophils/100 WBC (Body fld) 23 % [facility] Comment on above: The reference interv al and other method performance specifications have not been established for this body fluid. The test result must be integrated into the clinical context for interpretation. Vital Signs Date Time Vital Sign Value Performing Clinician Facility 10-18-2024 10:37-0500 Body height 152.4 cm [facility] 10-18-2024 10:37-0500 Body mass index (BMI) [Ratio] 29.9 kg/m2 [facility] 10-18-2024 10:37-0500 Body weight 69.39 kg [facility] 10-18-2024 10:37-0500 Diastolic blood pressure 78 mm[Hg] [facility] 10-18-2024 10:37-0500 Heart rate 57 /min [facility] 10-18-2024 10:37-0500 SaO2% (BldA) [Mass fraction] 98 % [facility] 10-18-2024 10:37-0500 Systolic blood pressure 160 mm[Hg] [facility] 10-18-2023 10:15-0500 Body height 152.4 cm Michelle Mccarthy Other [employer] [facility] Other 10-18-2023 10:15-0500 Body mass index (BMI) [Ratio] 32.26 kg/m2 Michelle Mccarthy Other [facility] Other 10-18-2023 10:15-0500 Body weight 74.93 kg Michelle Mccarthy Other [facility] Other 10-18-2023 10:15-0500 Diastolic blood pressure 88 mm[Hg] Michelle Mccarthy Other [facility] Other 10-18-2023 10:15-0500 SaO2% (BldA) [Mass fraction] 98 % Michelle Mccarthy Other [facility] Other 10-18-2023 10:15-0500 Systolic blood pressure 130 mm[Hg] Michelle Mccarthy Other [facility] Other 02-21-2023 10:30-0400 Body height 152.4 cm Michelle Mccarthy Other [facility] Other 02-21-2023 10:30-0400 Body mass index (BMI) [Ratio] 33 kg/m2 Michelle Mccarthy Other [facility] Other 02-21-2023 10:30-0400 Body weight 76.66 kg Michelle Mccarthy Other [facility] Other 02-21-2023 10:30-0400 Diastolic blood pressure 72 mm[Hg] Michelle Mccarthy Other [facility] Other 02-21-2023 10:30-0400 SaO2% (BldA) [Mass fraction] 98 % Michelle Mccarthy Other [facility] Other 02-21-2023 10:30-0400 Systolic blood pressure 122 mm[Hg] Michelle Mccarthy Other [facility] Other Encounters Encounter Date Encounter Type Care Provider Facility Start: 10-18-2024 Patient encounter status [facility] Start: 10-18-2024 End: 10-18-2024 ambulatory [facility] Work Phone: Start: 10-18-2024 End: 10-18-2024 Encounter for general adult medical examination without abnormal findings [facility] Start: 10-18-2024 End: 10-18-2024 Patient encounter procedure [facility] Work Phone: Start: 11-14-2023 End: 11-14-2023 ambulatory Michelle Mccarthy Other [facility] Other Start: 11-14-2023 Telephone encounter Michelle Mccarthy [facility] Start: 10-19-2023 End: 10-19-2023 ambulatory Michelle Mccarthy Other [facility] Other Start: 10-19-2023 Telephone encounter Michelle Mccarthy [facility] Start: 10-18-2023 End: 10-18-2023 ambulatory Michelle Mccarthy Other [facility] Other Start: 10-18-2023 Office outpatient vi sit 25 minutes Michelle Mccarthy [facility] Start: 10-18-2023 Telephone encounter Michelle Mccarthy [facility] Start: 03-09-2023 End: 03-09-2023 ambulatory Michelle Mccarthy Other [facility] Other Start: 03-09-2023 Telephone encounter Michelle Mccarthy [facility] Start: 02-23-2023 End: 02-23-2023 ambulatory Michelle Mccarthy Other [facility] Other Start: 02-23-2023 Telephone encounter Michelle Mccarthy [facility] Start: 02-21-2023 Office outpatient vi sit 15 minutes Michelle Mccarthy [facility] Start: 02-21-2023 End: 02-22-[address] MICHELLE MCCARTHY [facility] [employer] Other Start: 10-22-2022 End: 10-22-2022 ambulatory Michelle Mccarthy Other [facility] Other Start: 10-22-2022 Telephone encounter Michelle Mccarthy [facility] Start: 06-16-2022 ambulatory WILLIAM GRIFFITH . Facility : Start: 11-18-2021 Adult health examination Michelle Mccarthy Other [facility] Other Start: 11-10-2021 End: 11-10-2021 Departed Referred William Griffith Work Phone: [facility] [place] Procedures Date Procedure Procedure Detail Performing Clinician Start: 10-25-2017 Screening mammography Selina Mccarthy Other Depression screening Michelle Mccarthy Other Plan of Treatment Date Care Activity Detail Author [facility] Payers Date Payer Category Payer Medicare [id number] . [id number] 1959 Self-pay 1955 Unknown [id number] 1955 Unknown [id number] Unknown [id number] Social History Date Type Detail Facility Tobacco smoking status NHIS Unknown if ever smoked [facility] Start: 1955 Sex Assigned At Female F [facility] Sex Assigned At Sex Assigned At Bir th [facility] Other Tobacco smoking status NHIS Unknown if ever smoked 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 Oct, GERD without esophagitis (ICD-10 - K21.9) suggested OTC pepcid as she states now her heartburn is resolved totally. Does not want to start a daily med at this time. Could proceed GI referral if needed. [facility] Other 05-10-2023 Evaluation note* Encounter Date Diagnosis Assessment Notes Treatment Notes Treatment Clinical Notes February, RUQ abdominal pain (ICD-10 - R10.11) [facility] Other 05-08-2023 Evaluation note* Encounter Date Diagnosis Assessment Notes Treatment Notes Treatment Clinical Notes February, Right-sided chest pain (ICD-10 - R07.9) Discussed differential, consider GBUS if CXR/rib xray is normal. February, Dermatitis (ICD-10 - L30.9) Pt requests a refill of steroid med she was prescribed in October. [facility] Other 01-06-2023 Evaluation note* Encounter Date Diagnosis Assessment Notes Treatment Notes Treatment Clinical Notes Oct, Panlobular emphysema (ICD-10 - J43.1) [facility] Other Evaluation noteNo assessment information available [facility] note[facility] InformationNort Upplication Other Evaluation note* Diagnosis Onset Date Resolution Status Admit Date Elevated blood pressure reading acute October 18 10:32am Hypothyroid acute October 18, 2024 10:32am Medication management acute Oct uary 2024 10:32am Wellness examination acute miguel angel2024 10:32am [facility] Work Phone: History general Narrative - Reported* Type Description Date Medical History Blood Clots Medical History COPD [facility] Other History general Narrative - Reported* Type Description Date Medical History Blood Clots Medical History COPD Surgical History aorta stent 2009 [facility] Other History general Narrative - Reported* Type Description Date Medical History Blood Clots Medical History COPD Medical History Panlobular emphysema Medical History Allergy-induced asthma, mild int ermittent, uncomplicated Medical History Abscess of lower lobe of left margaret ng with pneumonia Medical History Pulmonary embolism Medical History Advanced COPD Medical History Arthritis Surgical History aorta stent 2009 [facility] Other Summary Purpose Family History Relationship Condition Age at Onset Recorded Date/T malinda father Unknown mother Unknown sister Unknown Advance Directives Advance Directive Response Recorded Date/ Time Advance Directives No May 25 022 5:38pm Chief Complaint and Reason for Visit Chief Complaint Admit Date Wellness October 18, 2024 10 :32am Reason for Visit Admit Date Elevated blood pressure reading October 18, 2024 10:32am Hypothyroid October 18, 2024 10 :32am Medication management October 18, 2024 10:32am Wellness examination October 18, 2024 1 0:32am Additional Source Comments Goals (unrecognized section and content) Goals may be documented in a n alternate sectionNo InformationNo InformationNo InformationNo InformationNo InformationNo InformationNo InformationNo InformationGoals may be documented in an alternate section REASON FOR VISIT (unrecogniz ed section and content) prescription refillPain unde r Breastxr resultsmessageconstant heart burnekgrefillrefill INFORMATION SOURCE (unrecogn ized section and content) DATE CREATED AUTHOR 02/25/2023 [facility] Care Teams (unrecognized sec tion and content) Team Status: Active Member Role Status Dates Michelle Mccarthy MD Primary Care Provider Active Team Status: Inactive Member Role Status Dates Michelle Mccarthy MD Primary Care Provide r, Attending Provider Active Start: October 18, 2024 End: October 18, 2024 FOR RECORDS PERTAINING TO PATIENTS WHO ARE OR HAVE BEEN ENROLLED IN A CHEMICAL DEPENDENCY/SUBSTANCEABUSE PROGRAM, SOME INFORMATION MAY BE OMITTED. This clinical summary was aggregated from multiple sources. Caution should be exercised in using it in the provision of clinical care. This summary normalizes information from multiple sources, and as a consequence, information in this document may materially change the coding, format and clinical context of patient data. In addition, data may be omitted in some cases. CLINICAL DECISIONS SHOULD BE BASED ON THE PRIMARY CLINICAL RECORDS. [employer] provides no warranty or guarantee of the accuracy or completeness of information in this document.
== END 2025-05-01 18:06 | disposition home or self-care (01) ==
PROVIDERS: Emergency Provider Emergency Medicine; PCP Family Medicine
DX: S61.012A Laceration without foreign body of left thumb without damage to nail, initial encounter (principal); W27.4XXA Contact with kitchen utensil, initial encounter; Z79.01 Long term (current) use of anticoagulants; Z90.710 Acquired absence of both cervix and uterus; Z90.721 Acquired absence of ovaries, unilateral; Z95.828 Presence of other vascular implants and grafts; Z87.891 Personal history of nicotine dependence
CPT/HCPCS: 99282

== ENCOUNTER 2025-06-06 09:21 | Outpatient (OUT) | payer OTHER, SELFPAY ==
--- OUTSIDE RECORDS SUMMARY | 2025-06-06 09:24 | XMS_ITS | Clinical Summary ---
Author Organization [facility] Address [address] [place] [address] Care Team Providers Care Advanced Research Programs Director Name Role Phone Unavailable Primary Care Provider [...]
--- OUTSIDE RECORDS SUMMARY | 2025-06-06 09:24 | XMS_ITS | Clinical Summary ---
Author Organization [employer] [facility] Address [id number] [place] [address] Care Team Providers Care Lamination Inspector Name Role Phone Unavailable Primary Care Provider [...]
--- OUTSIDE RECORDS SUMMARY | 2025-06-06 09:24 | XMS_ITS | Clinical Summary ---
Author Organization [facility] Address [address] [place] [address] Care Team Providers Care Real Estate Underwriter Name Role Phone Mitzi Herrera MD Unavailable [phone] Michelle Mccarthy MD Primary Care Provider [phone] Social History Tobacco Use Types Packs/Day Years [...] 2025 Medicare Annual Wellness (AWV) 10/18/2025 10/18/2024 Insurance [employer] Care Teams Real Estate Underwriter Relationship Specialty Start Date End Date Mitzi Herrera MD [address] [place] [address] PCP - Devoted 10/17/24 Michelle Mccarthy MD [address] [place] [id number] PCP - General Family Medicine 06/05/25
--- OUTSIDE RECORDS SUMMARY | 2025-06-06 09:28 | XMS_ITS | CCD ---
Author Organization [facility] Care Team Providers Care Dosier Operator Name Role Phone William Salinas Attending Provider Michelle Vasquez Unavailable WILLIAM ALLEN Attending Unavailable WILLIAM ALLEN Admitting Unavailable DR MICHELLE VASQUEZ Primary Care Unavailable PEDRO, DR MICHELLE Zapata Admitting Unavailable Natanael Oscar Consulting Unavailable PEDRO, DR MICHELLE Zapata Attending Unavailable PEDRO, DR MICHELLE Zapata Primary Care Unavailable PEDRO, DR MICHELLE Zapata Consulting Unavailable RUCHI ALDRIDGE Consulting Unavailable Michelle Vasquez MD Primary Care Provider Ольга Ribera CMA Attending Provider Unavaila Michelle Gregorio MD Attending Provider [phone] Michelle Vasquez MD Referring Provider Jb DA SILVA-CRita Attending Provider Rita Muhammad Admitting Unavailable Rita Muhammad Attending Unavailable Michelle Vasquez Referring Unavailable Michelle Vasquez Primary Care Unavailable Allergies Allergy Classification Reported Allergen(s) Allergy Type Date of Onset Reaction(s) Facility (4 sources) patient allergy list reviewed by nurse or physicia Propensity to adverse reactions 9 Comment:Done [facility] Other (4 sources) Allergies Reconciled Propensity to adverse reactions Unknown [facility] Other Medications Current Medications Medication Drug Class(es) Dates Sig (Normalized) Sig (Original) albuterol 0.833 mg/ml / ipratropium bromide 0.167 mg/ml inhalation solution (13 sources) Anticholinergic, beta2-Adrenergic Agonist Start: 07-03-2024 End: 04-16-2025 take 1 dose by inhalation four times daily as needed take 1 dose by inhal ation four times daily as needed Ipratropium-Albuterol 0.5-2.5 (3) MG/3ML INHALE ONE VIAL USING NEBULIZER FOUR TIMES DAILY NEEDED for 90 days Active Beet Root (1 source) Start: 06-03-2025 cayenne pepper (1 source) Start: 06-03-2025 dabigatran etexilate 150 mg oral capsule (1 source) Start: 06-03-2025 take 1 capsule by mo [facility] twice daily Completed/Discontinued Medications Medication Drug Class(es) Dates Sig (Normalized) Sig (Original) apixaban 5 mg oral tablet (11 sources) Factor Xa Inhibitor Start: 10-15-2024 End: 10-18-2024 take 1 tablet by mouth twice daily Apixaban 5 mg tablet Discontinued 1 TAB PO Twice daily October 15, 2024 1:00am October 18, 2024 11:41am [employer] tablet Orally Twice a day; Note: Source Status: Not-Takingundefined PRN; Provider: Pedro Martinez ( ) take 1 tablet by fredi every twelve hours Eliquis 5 MG 1 tablet Orally Twice a day Not-Taking/PRN baclofen 10 mg oral tablet (15 sources) gamma-Aminobutyric Acid-ergic Agonist Start: 10-22-2024 End: 06-03-2025 Baclofen 10 mg tablet Discontinued 0 .ROUTE .COMPLEX 180 December 20, 2024 3:36pm June 03, 2025 1:27pm TAKE 1 TABLET 2 TIMES DAILYAS NEEDED Start: 10-15-2024 End: 10-22-2024 take 1 tablet by mouth twice daily as needed Baclofen 10 mg tablet Discontinued 1 TAB PO Twice daily October 15, 2024 1:00am October 22, 2024 2:19pm [employer] tablet as needed Orally Twice a day; Note: Source Status: Refill; Qty: 180 Tablet; Provider: Pedro Zapata take 1 tablet by fredi th every twelve hours Baclofen 10 MG 1 tablet as needed Orally Twice a day for 90 days Active clobetasol propionate 0.5 mg/ml topical solution (6 sources) Corticosteroid Start: 10-18-2024 End: 05-09-2025 Clobetasol 0.05 % solution Discontinued 1 APPLIC TOPICAL Daily 50 October 18, 2024 12:27pm May 09, 2025 10:40am colestipol hydrochloride 1000 mg oral tablet (7 sources) Bile Acid Sequestrant Start: 10-15-2024 End: 10-18-2024 take 1 tablet by mouth three times daily Colestipol 1 gram tablet Discontinued GM PO October 15, 2024 1:00am October 18, 2024 11:41am [employer] Orally tid; Note: Source Status: Refill; Qty: 270 Tablet; Provider: Pedro Zapata Colestipol HCl 1 GM 1 Orally tid for 90 days Active ipratropium bromide 0.2 mg/ml inhalation solution (11 sources) Anticholinergic Start: 07-03-2024 End: 07-03-2024 take 0.5 mg by inhalation four times daily Ipratropium [place] 0.02 % solution Discontinued 0.5 MG INHALATION Four times daily July 03, 2024 12:00am July 03, 2024 8:24am take 2.5 mL by inhal ation four times daily Ipratropium [place] 0.02 % 2.5 mL Inhalation qid Active take 2.5 mL by inhal ation four times daily Ipratropium [place] 0.02 % 2.5 mL Inhalation qid Active losartan potassium 25 mg oral tablet (2 sources) Angiotensin 2 Receptor Vianca Start: 01-14-2025 End: 05-09-2025 take 1 tablet by mouth once daily Losartan 25 mg tablet Discontinued 25 MG PO Daily January 14, 2025 12:00am May 09, 2025 10:41am methylPREDNISolone 4 mg oral tablet (11 sources) Corticosteroid Start: 10-19-2022 take 4 mg by mouth once daily as needed methylPREDNISolone 4 MG as directed Orally Once a day for 6 days 1 pack Oct, Not-Taking/PRN rivaroxaban 20 mg oral tablet (13 sources) Factor Xa Inhibitor Start: 10-15-2024 End: 06-03-2025 take 1 tablet by mouth once daily at dinner Rivaroxaban (Xarelto) 20 mg tablet Discontinued 20 MG PO Daily October 18, 2024 1:00am June 03, 2025 2:04pm must administer with evening meal take 1 tablet by fredi th every twenty-four hours Xarelto 20 MG 1 tablet with food Orally Once a day Active Problems Active Problems Problem Classification Problem Date Documented Date Episodic/Chronic Abdominal pain (2 sources) Right upper quadrant pain; Translations: [Epigastric pain] Episodic Allergic reactions (3 sources) Dermatitis, unspecified; Translations: [Psoriasiform eczema] Episodic Asthma (5 sources) Mild intermittent asthma; [...] Translations: [CHEST PAIN UNSPECIFIED] Onset: 3 Episodic Open wounds of extremities (2 sources) Laceration of thumb; Translations: [Laceration without foreign body of unspecified thumb without damage to nail, initial encounter] 05-09-2025 Episodic Osteoarthritis (9 sources) Arthritis; Translations: [Unspecified osteoarthritis, unspecified site] Chronic Other aftercare (4 sources) Long-term current use of anticoagulant; Translations: [pharmacy aide (current) use of anticoagulants] Episodic Other aftercare (3 sources) Patient encounter status; Translations: [Other outdoor power equipment mechanic (current) drug therapy] 10-18-2024 Episodic Other aftercare (1 source) Other nursing home (current) drug therapy; Translations: [Long-term (current) use of other medications] 10-18-2024 Episodic Other circulatory disease (3 sources) Elevated blood pressure; Translations: [Elevated blood-pressure reading, [...] [Unspecified nonsuppurative otitis media, left ear] Episodic Phlebitis; thrombophlebitis and thromboembolism (6 sources) H/O: thrombosis; Translations: [Personal history of other venous thrombosis and embolism] Episodic Pneumonia (except that caused by tuberculosis [...] Translations: [Lumbago] Onset: 8 Episodic Thyroid disorders (8 sources) Simple goiter; Translations: [Nontoxic goiter, unspecified] Onset: 8 10-18-2024 Chronic Unclassified (1 source) Z86.718 - Personal history of other venous thrombosis and embolism Urinary tract infections (4 sources) Urethral syndrome; [...] Test Name Value Interpretation Reference Range Facility Laboratory - Chemistry and C hemistry - challengeOrdered By: Michelle Vasquez on 05-09-2025 Bilirubin Ql (U) Negative [facility] Glucose (U) [Mass/Vol] [facility] Ketones Ql (U) Negative [facility] pH (U) 5 [pH] [facility] Specific gravity (U) [Rel density] 1.000 [facility] Urobilinogen (U) [Mass/Vol] 0.2 mg/dL [facility] Laboratory - Specimen inform ationOrdered By: Michelle Vasquez on 05-09-2025 Appearance (U) clear [facility] Color (U) yellow [facility] Laboratory - UrinalysisOrder ed By: Michelle Vasquez on 05-09-2025 Leukocyte esterase Test strip Ql (U) Negative [facility] Nitrite Ql (U) Negative [facility] Protein Ql (U) Negative [facility] No Panel InformationOrdered By: Michelle Vasquez on 05-09-2025 Urine Occult Blood Negative [facility] XR CHEST 2 Von 02-21-2023 XR CHEST [...] RUCHI ALDRIDGE Date: 2023-02-21 11:05 Normal [facility] XR RIBS RT NO CH 2Von [...] NATANAEL OSCAR Date: 2023-02-21 14:59 Normal [facility] Body fluid differential cell counton 11-10-2021 Differential panel (Body fld) 5 % [facility] Comment on above: The reference interv al and other method performance specifications have not been established for this body fluid. The test result must be integrated into the clinical context for interpretation. Cells Counted Total [#] in P leural fluidon 11-10-2021 Cells Counted Total (Pleur fld) [#] 1627 /uL [facility] Comment on above: The reference interv al and other method performance specifications have not been established for this body fluid. The test result must be integrated into the clinical context for interpretation. Color of Spun Body fluidon 0 11-10-2021 Color (Spun body fld) Yellow [facility] Comment on above: The reference interv al and other method performance specifications have not been established for this body fluid. The test result must be integrated into the clinical context for interpretation. Determination of appearance of body fluidon 11-10-2021 Appearance (Body fld) Cloudy [facility] Comment on above: The reference interv al and other method performance specifications have not been established for this body fluid. The test result must be integrated into the clinical context for interpretation. Erythrocytes [#/volume] in P leural fluid by Automated counton 11-10-2021 RBC Auto (Pleur fld) [#/Vol] [id number] /uL [facility] Comment on above: The reference interv al and other method performance specifications have not been established for this body fluid. The test result must be integrated into the clinical context for interpretation. Evaluation of color of body fluidon 11-10-2021 Color (Body fld) Red [facility] Comment on above: The reference interv al and other method performance specifications have not been established for this body fluid. The test result must be integrated into the clinical context for interpretation. Manual body fluid eosinophil s/100 leukocyteson 11-10-2021 Eosinophils/100 WBC Manual cnt (Body fld) N/A [facility] Manual body fluid lymphocyte s/100 leukocyteson 11-10-2021 Lymphocytes/100 WBC Manual cnt (Body fld) 72 % [facility] Comment on above: The reference interv al and other method performance specifications have not been established for this body fluid. The test result must be integrated into the clinical context for interpretation. Neutrophils/100 WBC Manual c nt (Body fld)on 11-10-2021 Neutrophils/100 WBC (Body fld) 23 % [facility] Comment on above: The reference interv al and other method performance specifications have not been established for this body fluid. The test result must be integrated into the clinical context for interpretation. Vital Signs Date Time Vital Sign Value Performing Clinician Facility 06-03-2025 13:25-0400 Body height 152.4 cm Michelle Vasquez MD Work Phone: [facility] 06-03-2025 13:25-0400 Body mass index (BMI) [Ratio] 30 kg/m2 Michelle Vasquez MD Work Phone: [facility] 06-03-2025 13:25-0400 Body temperature 74 [degF] Michelle Vasquez MD Work Phone: [facility] 06-03-2025 13:25-0400 Body weight 69.85 kg Michelle Vasquez MD Work Phone: [facility] 06-03-2025 13:25-0400 Diastolic blood pressure 84 mm[Hg] Michelle Vasquez MD Work Phone: [facility] 06-03-2025 13:25-0400 Heart rate 74 /min Michelle Vasquez MD Work Phone: [facility] 06-03-2025 13:25-0400 Respiratory rate 20 /min Michelle Vasquez MD Work Phone: [facility] 06-03-2025 13:25-0400 SaO2% (BldA) [Mass fraction] 97 % Michelle Vasquez MD Work Phone: [facility] 06-03-2025 13:25-0400 Systolic blood pressure 180 mm[Hg] Michelle Vasquez MD Work Phone: [facility] 05-09-2025 10:37-0400 Body height 152.4 cm Michelle Vasquez MD Work Phone: [facility] 05-09-2025 10:37-0400 Body mass index (BMI) [Ratio] 29.9 kg/m2 Michelle Vasquez MD Work Phone: [facility] 05-09-2025 10:37-0400 Body weight 69.39 kg Michelle Vasquez MD Work Phone: [facility] 05-09-2025 10:37-0400 Diastolic blood pressure 110 mm[Hg] Michelle Vasquez MD Work Phone: [facility] 05-09-2025 10:37-0400 Heart rate 63 /min Michelle Vasquez MD Work Phone: [facility] 05-09-2025 10:37-0400 Systolic blood pressure 190 mm[Hg] Michelle Vasquez MD Work Phone: [facility] 10-18-2024 10:37-0500 Body height 152.4 cm [facility] 10-18-2024 10:37-0500 Body mass index (BMI) [Ratio] 29.9 kg/m2 [facility] 10-18-2024 10:37-0500 Body weight 69.39 kg [facility] 10-18-2024 10:37-0500 Diastolic blood pressure 78 mm[Hg] [facility] 10-18-2024 10:37-0500 Heart rate 57 /min [facility] 10-18-2024 10:37-0500 SaO2% (BldA) [Mass fraction] 98 % [facility] 10-18-2024 10:37-0500 Systolic blood pressure 160 mm[Hg] [facility] 10-18-2023 10:15-0500 Body height 152.4 cm Michelle Vasquez Other [facility] [employer] Other 10-18-2023 10:15-0500 Body mass index (BMI) [Ratio] 32.26 kg/m2 Michelle Vasquez Other [employer] [facility] [employer] Other 10-18-2023 10:15-0500 Body weight 74.93 kg Michelle Vasquez Other [facility] Other 10-18-2023 10:15-0500 Diastolic blood pressure 88 mm[Hg] Michelle Vasquez Other [facility] Other 10-18-2023 10:15-0500 SaO2% (BldA) [Mass fraction] 98 % Michelle Vasquez Other [facility] Other 10-18-2023 10:15-0500 Systolic blood pressure 130 mm[Hg] Michlele Vasquez Other [facility] Other 02-21-2023 10:30-0400 Body height 152.4 cm Michelle Vasquez Other [facility] Other 02-21-2023 10:30-0400 Body mass index (BMI) [Ratio] 33 kg/m2 Michelle Vasquez Other [facility] Other 02-21-2023 10:30-0400 Body weight 76.66 kg Michelle Vasquez Other [facility] Other 02-21-2023 10:30-0400 Diastolic blood pressure 72 mm[Hg] Michelle Vasquez Other [facility] Other 02-21-2023 10:30-0400 SaO2% (BldA) [Mass fraction] 98 % Michelle Vasquez Other [facility] Other 02-21-2023 10:30-0400 Systolic blood pressure 122 mm[Hg] Michelle Vasquez Other [facility] Other Encounters Encounter Date Encounter Type Care Provider Facility Start: 06-03-2025 Registered Recurring Rita hernandez NP-C -[facility] Acute Work Phone: Start: 06-03-2025 End: 06-03-2025 ambulatory Michelle Vasquez MD Work Phone: [facility] Work Phone: Start: 06-03-2025 End: 06-03-2025 Patient encounter procedure Rita ACEVEDOC -[facility] Ambulatory Work Phone: Start: 05-09-2025 End: 05-09-2025 ambulatory Michelle Vasquez MD Work Phone: [facility] Work Phone: Start: 05-09-2025 End: 05-09-2025 Patient encounter procedure Michelle Vasquez MD -[facility] Work Phone: Start: 05-06-2025 Non-patient / Non-visit Ольга Faith reddy [facility] -[facility] Work Phone: Start: 05-03-2025 Non-patient / Non-visit Ольга Mckeon [facility] Work Phone: Start: 10-18-2024 Patient encounter status [facility] Start: 10-18-2024 End: 10-18-2024 ambulatory [facility] Work Phone: Start: 10-18-2024 End: 10-18-2024 Encounter for general adult medical examination without abnormal findings [facility] Start: 10-18-2024 End: 10-18-2024 Patient encounter procedure [facility] Work Phone: Start: 11-14-2023 End: 11-14-2023 ambulatory Michelle Vasquez Other [facility] Other Start: 11-14-2023 Telephone encounter Michelle Vasquez [facility] Start: 10-19-2023 End: 10-19-2023 ambulatory Michelle Vasquez Other [facility] Other Start: 10-19-2023 Telephone encounter Michelle Vasquez [facility] Start: 10-18-2023 End: 10-18-2023 ambulatory Michelle Vasquez Other [facility] Other Start: 10-18-2023 Office outpatient vi sit 25 minutes Michelle Vasquez [facility] Start: 10-18-2023 Telephone encounter Michelle Vasquez [facility] Start: 03-09-2023 End: 03-09-2023 ambulatory Michelle Vasquez Other [facility] Other Start: 03-09-2023 Telephone encounter Michelle Vasquez [facility] Start: 02-23-2023 End: 02-23-2023 ambulatory Michelle Vasquez Other [facility] Other Start: 02-23-2023 Telephone encounter Michelle Vasquez [facility] Start: 02-21-2023 Office outpatient vi sit 15 minutes Michelle Vasquez [facility] Start: 02-21-2023 End: 02-22-[address] MICHELLE VASQUEZ [employer] Other Start: 10-22-2022 End: 10-22-2022 ambulatory Michelle Vasquez Other [facility] Other Start: 10-22-2022 Telephone encounter Michelle Vasquez [facility] Start: 06-16-2022 ambulatory WILLIAM LIBBY . Facility : Start: 11-18-2021 Adult health examination Michelle Vasquez Other [facility] Other Start: 11-10-2021 End: 11-10-2021 Departed Referred William Salinas Work Phone: [facility] [place] Procedures Date Procedure Procedure Detail Performing Clinician Start: 10-25-2017 Screening mammography M bill Vasquez Other Depression screening Michelle Vasquez Other Plan of Treatment Date Care Activity Detail Author Start: 05-09-2025 Patient referral [facility] Work Phone: Comprehensive metabo lic 2000 panel - Serum or Plasma [facility] Patient referral [facility] Work Phone: [facility] Payers Date Payer Category Payer Unknown DIXIE [id number] 1959 Medicare [id number] 1959 Self-pay 1955 Unknown [id number] 1955 Unknown [id number] Unknown [id number] Social History Date Type Detail Facility Tobacco smoking status NHIS Unknown if ever smoked [facility] Start: 1955 Sex Assigned At Female F [facility] Sex Assigned At Sex Assigned At th [employer] [place] Other Tobacco smoking status CAIS Unknown if ever smoked [facility] Work Phone: Start: 10-18-2024 Sex Female (finding) [facility] Start: 06-03-2025 Tobacco smoking status NHIS Ex-smoker (finding) [facility] Clinical Notes 10-22-2022 to 06-03-2025 Note Date & Type Note Facility 06-03-2025 Progress note [facility] enter 05-09-2025 Evaluation note Diagnosis Onset Date Resolution H/O blood clots acute April 10:36am Laceration of thumb without damage to nail acute April 10:36am DVT (deep venous thrombosis) acute June 03 12:47pm H/O blood clots acute June 032024 12:47pm [facility] Work Phone: 1(811) 919-718601-29-2024 Evaluation note* Encounter Date Diagnosis Assessment Notes Treatment Notes Treatment Clinical Notes Oct, 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 Oct, GERD without esophagitis (ICD-10 - K21.9) suggested OTC pepcid as she states now her heartburn is resolved totally. Does not want to start a daily med at this time. Could proceed GI referral if needed. [facility] Other 05-10-2023 Evaluation note* Encounter Date Diagnosis Assessment Notes Treatment Notes Treatment Clinical Notes February, RUQ abdominal pain (ICD-10 - R10.11) [facility] Other 05-08-2023 Evaluation note* Encounter Date Diagnosis Assessment Notes Treatment Notes Treatment Clinical Notes February, Right-sided chest pain (ICD-10 - R07.9) Discussed differential, consider GBUS if CXR/rib xray is normal. February, Dermatitis (ICD-10 - L30.9) Pt requests a refill of steroid med she was prescribed in October. [facility] Other 01-06-2023 Evaluation note* Encounter Date Diagnosis Assessment Notes Treatment Notes Treatment Clinical Notes Oct, Panlobular emphysema (ICD-10 - J43.1) [facility] Other Evaluation noteNo assessment information available [facility] [employer] [place] Other Evaluation note* Diagnosis Onset Date Resolution Status Admit Date Elevated blood pressure reading acute October 18 10:32am Hypothyroid acute October 18, 2024 10:32am Medication management acute Peter uary 2024 10:32am Wellness examination acute Otoniel miguel angel 2024 10:32am [facility] Work Phone: Hiszfwe general Narrative - Reported* Type Description Date Medical History Blood Clots Medical History COPD [facility] Other Histnui general Narrative - Reported* Type Description Date Medical History Blood Clots Medical History COPD Surgical History aorta stent 2009 [facility] Other History general Narrative - Reported* Type Description Date Medical History Blood Clots Medical History COPD Medical History Panlobular emphysema Medical History Allergy-induced asthma, mild int ermittent, uncomplicated Medical History Abscess of lower lobe of left margaret ng with pneumonia Medical History Pulmonary embolism Medical History Advanced COPD Medical History Arthritis Surgical History aorta stent 2009 [facility] Other Progress note Author Rita Muhammad [facility] Note Date/Time June 03, 2025 2: 03pm [facility] [place] [address] Cancer Center Note Signed Patient: Bernard hO MR#: [id number] : 1955 Acct:[id number] Age/Sex: 69 / F Type: REG AMB Date of Service: 06/03/25 Copies to: Michelle Vasquez MD~ Assessment & Plan A/P (1) H/O blood clots: (2) DVT (deep venous thrombosis): Plan Based on her history of blood clots, I would recommend indefinite anticoagulation. Discussed this with patient- She is at high risk for another clot. Switch to Pradaxa. This is often cheaper than Eliquis. Discussed goodrx coupons. If Pradaxa is still too expensive, consider Coumadin. Orders: Orders Complete Blood Count Auto Diff 1 Year Z86.718 - Personal history of other venous thrombosis and embolism Comprehensive Metabolic Panel 1 Year Z86.718 - Personal history of other venousthrombosis and embolism Patient Instructions: Pradaxa 150mg BID for 90 days with 3 refills to [facility] Sent CBC,CMP labs orders to [facility] Stop Xarelto Follow up in 1 year with [employer] No Active Chemotherapy History of Present Illness HPI Ms Oh was referred to by Dr. Vasquez for history of blood clots. She has a pastmedical history of hypothyroidism, hypertension, COPD, and blood clots. She denies any history of valve replacement. She had her make their own water. She tries hard to exercise and live a healthy life. She used to smoke butdoesn't want to. She is on Xarelto without issues. She has also been on Eliquis without a problem. Her first blood clot was in 2007 or 2008. It was a DVT. Then [facility] she had COVID and was diagnosed with a PE. Patient is feeling great. Feels normal. Breathing is fair. Feels like breathingmight get worse in the humidity. She has a bit of leg swelling. Bleeds a bit longer than normal when she gets a cut because of the Xarelto. No dark or tarry stool. Intake Vitals/Pain Assessment 06/03/25 13:25 Height 5 ft Weight 69.853 kg BMI 30.0 Body Fat % 46.53 BP 180/84 H Blood Pressure Location Rt brachial Position Sitting Temp 74 F L Pulse 74 Pulse Source NIBP Respiration 20 Pulse Oximetry (%) 97 Oxygen Delivery Method room air Are you having pain? No Intake Visit Reasons: NEW- History of Blood Clots Allergies No Known Allergies Allergy (Verified 06/03/25 13:27) Home Medications - Last Reconciled 06/03/25 by MEE Rossi [Beet Root PO] [cayenne pepper PO] ipratropium-albuterol 0.5 mg-3 mg(2.5 mg base)/3 mL INHALE THE CONTENTS OF 1 VIAL VIA NEBULIZER 4 TIMES A DAY NEEDED rivaroxaban (Xarelto) 20 mg PO DAILY Gastrointestinal Is the patient taking opioids for pain control?: No Bowel Protocol for Opioids Given: No Bowel Pattern: Regular Bowel Movement Aid(s): None Falls Fall Precaution Measures Taken: Patient in chair Nurse's Note: Patient is referred by Dr Michelle Vasquez for history of blood clots. Has been taking Xarelto for about 4 years. [facility] Medical History Medical History (Updated 06/03/25 @ 13:49 by SHARMIN Rivera) COPD (chronic obstructive pulmonary disease) H/O blood clots Unspecified osteoarthritis, unspecified site Pulmonary embolism Pneumonia, unspecified organism Personal history of nicotine dependence Other pulmonary embolism without acute cor pulmonale GERD without esophagitis COVID-19 Arthritis Advanced COPD Abscess of lung with pneumonia Abscess of lower lobe of left lung with pneumonia Surgical History Surgical History (Updated 06/03/25 @ 13:31 by MEE Rossi) History of cholecystectomy H/O stentless aortic valve replacement Family History Family History (Updated 06/03/25 @ 13:31 by MEE Rossi) Father Mother Bladder cancer Sister Social History Social History (Updated 06/03/25 @ 13:32 by MEE Rossi) Smoking status: Former smoker What tobacco products do you use: cigarettes Smoking quit date/years: >15 years ago Nicotine containing products detail: quit 16 years ago (as of 06/03/2025) Within the past year, how often did you have a drink containing alcohol: never AUDIT-C Alcohol total score: 0 AUDIT-C Alcohol score interpretation: A score less than 3 is consistent with normal alcohol consumption. In the past 12 months, have you used illegal drugs or prescription drugs for non-medical reasons?: No Physical Exam EXAM ECO General: In no acute distress, ambulates with cane HEENT: Normocephalic, atraumatic. Lymph: No cervical or axiliary lymph nodes palpable. Heart: RRR Lungs: Lungs CTA. Symmetric expansion Abdomen: Normal bowel sounds, nontender, no hepatosplenomegaly Skin: warm, dry. No rash. Neuro: Alert, oriented. Psych: no evidence of anxiety or depression on exam. Mood appropriate Dictated By: SHARMIN Rivera DD/ 1325 Signed By: <Electronically signed by SHARMIN Muhammad> 06/03/25 1403 [facility] Work Phone: Reason for referral (narrative)No reason for referral information availableOhiohealth [facility]ide [facility] Hospital Work Phone: Summary Purpose Family History No Family History Records Found Relationship Condition Age at Onset Recorded Date/T malinda father Unknown mother Unknown sister Unknown Relationship Condition Age at Onset Recorded Date/T malinda father Unknown mother Unknown Malignant neoplasm of urinary bladder Unk nown sister Unknown Advance Directives No Advanced Directives Records Found Advance Directive Response Recorded Date/ Time Advance Directives No May 25 5:38pm Advance Directive Response Recorded Date/ Time Advance Directives No May 25 6:38pm Chief Complaint and Reason for Visit Chief Complaint Admit Date Amb Documentation May 03, 2025 9:01 am Amb Documentation May 06, 2025 8:15 am [facility], thumb injury May 09, 2025 10:3 6am Chief Complaint Admit Date Wellness October 18, [...] InformationGoals may be documented in an alternate sectionGoals may be documented in an alternate sectionGoals may be documented in an alternate section REASON FOR VISIT (unrecogniz ed section and content) prescription refillPain unde r Breastxr resultsmessageconstant heart burnekgrefillrefill INFORMATION SOURCE (unrecogn ized section and content) DATE CREATED AUTHOR 02/25/2023 [facility] DATE CREATED AUTHOR AUTHOR'S ORGANIZ ATION 06/04/2025 [facility] Care Teams (unrecognized sec tion and content) Team Status: Active Member Role Status Dates Michelle Vasquez MD Primary Care Provider Active Team Status: Active Member Role Status Dates Michelle Vasquez MD Primary Care Provider Active Start: May 03, 2025 Ольга Ribera CMA Attending Provider Active Start: May 03, 2025 Team Status: Active Member Role Status Dates Michelle Vasquez MD Primary Care Provider Active Start: May 06, 2025 Ольга Ribera CMA Attending Provider Active Start: May 06, 2025 Team Status: Inactive Member Role Status Dates Michelle Vasquez MD Primary Care Provider Active Start: May 09, 2025 End: May 09, 2025 Michelle Vasquez MD Attending Provider Active St art: May 09, 2025 End: May 09, 2025 Team Status: Inactive Member Role Status Dates Michelle Vasquez MD Primary Care Provide r, Attending Provider Active Start: October 18, 2024 End: October 18, 2024 Team Status: Inactive Member Role Status Dates Michelle Vasquez MD Primary Care Provider Active Start: June 03, 2025 End: June 03, 2025 Michelle Vasquez MD Referring Provider Active St art: June 03, 2025 End: June 03, 2025 SHARMIN Rivera Attending Provider Active Start: June 03, 2025 End: June 03, 2025 Team Status: Active Member Role Status Dates Michelle Vasquez MD Primary Care Provider Active Start: June 03, 2025 Michelle Vasquez MD Referring Provider Active St art: June 03, 2025 SHARMIN Rivera Attending Provider Active Start: June 03, 2025 FOR RECORDS PERTAINING TO PATIENTS WHO ARE [...] BE BASED ON THE PRIMARY CLINICAL RECORDS. [employer] provides no warranty or guarantee of the accuracy or completeness of information in this document.
[2025-06-06 10:36] LABS: Alanine Aminotransferase 32 U/L (14-59); Albumin Globulin Ratio 0.9; Albumin Level 3.9 g/dL (3.4-5.0); Alkaline Phosphatase 99 U/L (46-116); Anion Gap 11.9; Aspartate Amino Transferase 20 U/L (15-37); Blood Urea Nitrogen 16.0 mg/dL (7.0-18.0); Calcium 9.0 mg/dL (8.5-10.1); Carbon Dioxide 29.3 mmol/L (21.0-32.0); Chloride 105 mmol/L (98-107); Estimated GFR (African America >60 (>=60 mL/min/1.73m^2); Estimated GFR (Non-African Ame 56 (>=60 mL/min/1.73m^2); Globulin 4.2 g/dL; Glucose 101 mg/dL (74-106); Potassium 4.2 mmol/L (3.5-5.1); Sodium 142 mmol/L (136-145); Total Protein 8.1 g/dL (6.4-8.2)
[2025-06-06 11:04] LABS: Hematocrit 44.6 % (36.0-48.0); Hemoglobin 14.5 g/dL (12.0-16.0); Immature Granulocytes Abs Auto 0.02 10^3/uL (0.00-0.03); Immature Granulocytes Pct Auto 0.2 % (0.0-0.5); Lymphocytes Absolute Auto 2.8 10^3/uL (1.2-3.8); Mean Corpuscular HGB Conc 32.5 g/dL (29.9-35.2); Mean Corpuscular Hemoglobin 29.4 pg (26.7-34.0); Mean Corpuscular Volume 90.3 fL (81.0-99.0); Platelet Count 205 10^3/uL (150-450); Red Blood Count 4.94 10^6/uL (4.20-5.40); White Blood Count 9.3 10^3/uL (4.0-11.0)
== END 2025-06-06 09:22 | disposition home or self-care (01) ==
LOC: LAB 09:22
PROVIDERS: PCP Family Medicine; Visit Provider Nurse Practitioner Adult Health
DX: Z86.718 Personal history of other venous thrombosis and embolism (principal)
CPT/HCPCS: 36415; 80053; 85025